=== PATIENT | male | born 1975 | race Caucasian/White ===

== ENCOUNTER 2021-01-27 15:42 | Emergency (ER) | payer OTHER, SELFPAY ==
[2021-01-27 15:45] VITALS: BP 131/91; PULSE 94; RESP 17; TEMP 36.8; O2SAT 97
--- NOTE | 2021-01-27 16:32 | ED.SKABFB ---
HPI - Skin/Abscess/Foreign Bdy General Chief complaint: Skin/Abscess/Foreign Body Stated complaint: spider bite Time Seen by Provider: 01/27/21 16:32 Source: patient Mode of arrival: ambulatory Limitations: no limitations History of Present Illness HPI narrative: 45-year-old man comes in today complaining of a painful lesion in his right lower back that started 2 days ago. Patient states that this is similar to lesions he has had in the past when he was bit by a spider. He has had some mild nausea and fatigue but denies any fever, vomiting, spreading redness, or neurologic symptoms. Tetanus vaccination is up-to-date. complaint: rash and insect bite/sting Onset (ago): day(s) (2) Tetanus up to date: yes Location: back Severity: moderate Quality: burning Pain Consistency: constant Relieving factors: none Exacerbating factors: palpation Associated symptoms: nausea Related Data Allergies Allergy/AdvReac Type Severity Reaction Status Date / Time No Known Allergies Allergy Verified 01/27/21 16:08 Review of Systems Review of Systems: All systems reviewed & are unremarkable except as noted in HPI and below Constitutional: Constitutional: Denies chills and Denies fever(s) Eyes: Eyes: Denies change in vision and Denies photophobia Cardiovascular: Cardiovascular: Denies chest pain and Denies radiating jaw, neck or arm pain Respiratory: Respiratory: Denies cough and Denies dyspnea Gastrointestinal: Gastrointestinal: Reports as per HPI, Denies abdominal pain, Denies diarrhea, Reports nausea and Denies vomiting Musculoskeletal: Musculoskeletal: Denies arthralgias and Denies joint swelling Integumentary/Breasts: Skin/Breast: Reports as per HPI, Reports erythema and Reports rash Neurologic: Denies vertigo, Denies dizziness and Denies syncope Hematologic/Lymphatic: Hematologic/Lymphatic: Denies easy bleeding and Denies easy bruising Allergic/Immunologic: Allergic/Immunologic: Denies lip swelling and Denies throat swelling [facility] Social History Social History (Updated 01/27/21 @ 16:42 by Jag Covington MD) Smoking status: Never smoker Alcohol use details: Occasion Substance use: never Living arrangements: with family Exam Const: General: healthy appearing, no acute distress and alert Orientation/consciousness: patient oriented x3 Limitations: no limitations Eyes: Conjunctivae: conjunctivae normal Pupils: Equal, round and reactive pupils present EOM: EOMs intact bilaterally Resp: Effort & Inspection: normal respiratory effort and not labored Auscultation: clear to auscultation bilaterally, no rales, no rhonchi and no wheezes Cardio: Rate: regular rate Rhythm: regular rhythm Heart sounds: no murmurs Skin: General skin exam: normal color, no jaundice and no pallor Rashes: no rashes Other: 2 x 3 cm area of indurated, peau d'orange appearing skin with an irregular border and a halo of surrounding mild erythema without warmth or induration. there are no vesicles, bullae or drainage. Neuro: General: patient oriented x3, moves all extremities, no focal motor deficits and CN's II-XI intact bilaterally Speech: normal speech Gait exam (Neuro): Normal gait present Extrem: General: normal to inspection and no clubbing, cyanosis or edema Psych: Appearance: grossly normal and well kempt Mental Status: mental status grossly normal Affect: normal affect Attitude: cooperative Thought content: Yes Normal thought content present Discharge Plan Discharge Clinical Impression: Insect bite Qualifiers: Encounter type: initial encounter Site of insect bite: lower back Qualified Code(s): S30.860A - Insect bite (nonvenomous) of lower back and pelvis, initial encounter Patient Disposition: Home, Self-Care Condition: Stable Instructions: Insect Bite or Sting (ED), Brown Recluse Spider Bite (ED) Additional Instructions: Cool compresses. Watch closely for signs of infection. Be re-evaluated t
[2021-01-27 17:00] VITALS: RESP 18
== END 2021-01-27 17:00 | disposition home or self-care (01) ==
PROVIDERS: Emergency Provider Emergency Medicine; PCP Physician Assistant
DX: S30.860A Insect bite (nonvenomous) of lower back and pelvis, initial encounter (principal); W57.XXXA Bitten or stung by nonvenomous insect and other nonvenomous arthropods, initial encounter
CPT/HCPCS: 99283